=== PATIENT | female | born 1980 | race Caucasian/White ===

== ENCOUNTER 2021-12-28 08:14 | Outpatient (CLI) | payer MEDICAID, SELFPAY ==
--- NOTE | 2021-12-28 08:00 | RT.EKG_ITS ---
APPROVED REPORT Exam: Resting ECG Reason for Exam: atypical chest pain Patient Location: O HR:88 bpm ECG Measurements Heart Rate 88 AXIS OH 151 P 23 QRSd 103 QRS 20 QT 374 T 24 QTc 453 Conclusion Sinus rhythm...normal P axis, V-rate 50- 99 Normal Electrocardiogram
== END 2021-12-28 08:15 | disposition home or self-care (01) ==
LOC: DI.CARD 08:16
PROVIDERS: PCP Family Medicine; Visit Provider Internal Medicine Cardiovascular Disease
DX: R07.89 Other chest pain (principal); Z82.49 Family history of ischemic heart disease and other diseases of the circulatory system
CPT/HCPCS: 93010